=== PATIENT | female | born 1940 | race Caucasian/White ===

== ENCOUNTER 2017-12-10 06:52 | Day surgery (SDC) | payer OTHER ==
[2017-12-07 10:01] LABS: BASOPHILS # (AUTO) 0.1 K/uL (0.00-0.22); BASOPHILS % (AUTO) 1.2 % (0.0-2.0); EOSINOPHILS # (AUTO) 0.1 K/uL (0-0.4); EOSINOPHILS % (AUTO) 2.2 % (0.0-4.0); HEMATOCRIT 45.6 % (36-48); LYMPHOCYTES # (AUTO) 1.2 K/uL (2.5-16.5); LYMPHOCYTES % (AUTO) 22.2 % (20.5-51.1); MEAN CORPUSCULAR HEMOGLOBIN 30 pg (27-31); MEAN CORPUSCULAR HGB CONC 33 g/dL (33-37); MEAN CORPUSCULAR VOLUME 89.9 fL (80-94); MONOCYTES # (AUTO) 0.5 K/uL (0.8-1.0); MONOCYTES % (AUTO) 8.2 % (1.7-9.3); NEUTROPHILS # (AUTO) 3.7 K/uL (1.8-7.7); NEUTROPHILS % (AUTO) 66.2 % (42.2-75.2); PLATELET COUNT (AUTO) 240 K/uL (140-450); RED BLOOD CELL COUNT(AUTO) 5.07 MIL/uL (4.20-5.40); WHITE BLOOD COUNT (AUTO) 5.6 K/uL (4.8-10.8)
[2017-12-07 10:22] LABS: ALBUMIN 4.1 g/dL (3.4-5.0); ANION GAP 9.7 (8-16); ASPARTATE AMINOTRANSFERASE 17 U/L (15-37); CARBON DIOXIDE 28.4 mmol/L (21-32); CHLORIDE 105 mmol/L (98-107); CREATININE 0.8 mg/dL (0.6-1.3); GLUCOSE 89 mg/dL (74-106); POTASSIUM 4.1 mmol/L (3.5-5.1); SODIUM SERUM 139 mmol/L (136-145); TOTAL BILIRUBIN 0.6 mg/dL (0.0-1.0); UREA NITROGEN, BLOOD 11 mg/dL (7-18)
[~2017-12-10] VITALS: Ht 160 cm; Wt 49.0 kg
[2017-12-10] MEDS ORDERED: PROPOFOL 200 MG/20 ML VIAL IV ONE (08:30)
[2017-12-10] MEDS ORDERED: LACTATED RINGERS 1,000 ML IV SCH (09:12)
== END 2017-12-10 10:05 | disposition home or self-care (01) ==
LOC: MMU 06:52 → MDS 06:52
PROVIDERS: ATTEND Internal Medicine Gastroenterology
DX: K44.9 Diaphragmatic hernia without obstruction or gangrene (principal); Z88.1 Allergy status to other antibiotic agents; Z88.5 Allergy status to narcotic agent; Z88.8 Allergy status to other drugs, medicaments and biological substances; J44.9 Chronic obstructive pulmonary disease, unspecified; Z90.710 Acquired absence of both cervix and uterus; Z98.890 Other specified postprocedural states
CPT/HCPCS: 36415; 43235; 71045; 80053; 85025; 93005; J2704; J7030; J7120

== ENCOUNTER 2023-01-27 15:41 | Emergency (ER) | payer OTHER ==
[~2023-01-27] VITALS: Ht 160 cm; Wt 59.0 kg
[2023-01-27 16:02] VITALS: BP 168/94; PULSE 89; RESP 14; TEMP 98.1; O2SAT 98
[2023-01-27 17:01] LABS: BASOPHILS % (AUTO) 0.7 % (0.0-2.0); EOSINOPHILS # (AUTO) 0.1 K/uL (0-0.4); EOSINOPHILS % (AUTO) 1.1 % (0.0-4.0); HEMATOCRIT 39.8 % (36-48); HEMOGLOBIN 13.2 g/dL (12.0-16.0); LYMPHOCYTES # (AUTO) 0.5 K/uL (2.5-16.5); LYMPHOCYTES % (AUTO) 9.3 % (20.5-51.1); MEAN CORPUSCULAR HEMOGLOBIN 30 pg (27-31); MEAN CORPUSCULAR HGB CONC 33 g/dL (33-37); MEAN CORPUSCULAR VOLUME 88.8 fL (80-94); MONOCYTES # (AUTO) 0.4 K/uL (0.8-1.0); MONOCYTES % (AUTO) 7.1 % (1.7-9.3); NEUTROPHILS # (AUTO) 4.7 K/uL (1.8-7.7); NEUTROPHILS % (AUTO) 81.8 % (42.2-75.2); PLATELET COUNT (AUTO) 282 K/uL (140-450); RED BLOOD CELL COUNT(AUTO) 4.48 MIL/uL (4.20-5.40); RED CELL DISTRIBUTION WIDTH 14.5 % (11.6-13.7); WHITE BLOOD COUNT (AUTO) 5.7 K/uL (4.8-10.8)
[2023-01-27 17:16] LABS: ALANINE AMINOTRANSFERASE 13 U/L (12-78); ALBUMIN 3.3 g/dL (3.4-5.0); ALKALINE PHOSPHATASE 100 U/L (50-136); ANION GAP 13.6 (8-16); ASPARTATE AMINOTRANSFERASE 18 U/L (15-37); CALCIUM 9.2 mg/dL (8.5-10.1); CARBON DIOXIDE 27.1 mmol/L (21-32); CHLORIDE 103 mmol/L (98-107); CREATININE 0.8 mg/dL (0.6-1.3); GLUCOSE 84 mg/dL (74-106); POTASSIUM 3.7 mmol/L (3.5-5.1); SODIUM SERUM 140 mmol/L (136-145); TOTAL BILIRUBIN 0.7 mg/dL (0.0-1.0); TOTAL PROTEIN, SERUM 7.1 g/dL (6.4-8.2); UREA NITROGEN, BLOOD 14 mg/dL (7-18)
[2023-01-27 17:17] LABS: INR 1.01 (0.8-1.2); PARTIAL THROMBOPLASTIN TIME 24.3 secs (22-35.6); PROTHROMBIN TIME 10.6 secs (10.8-13.4)
[2023-01-27 17:35] VITALS: BP 177/85; PULSE 99; RESP 19; TEMP 97.3
[2023-01-27 17:40] VITALS: O2SAT 94
== END 2023-01-27 17:03 | disposition short-term general hospital (02) ==
LOC: MED 15:41
DX: S40.012A Contusion of left shoulder, initial encounter (principal); S06.360A Traumatic hemorrhage of cerebrum, unspecified, without loss of consciousness, initial encounter; R90.0 Intracranial space-occupying lesion found on diagnostic imaging of central nervous system; Z79.899 Other long term (current) drug therapy; Z88.8 Allergy status to other drugs, medicaments and biological substances; W18.30XA Fall on same level, unspecified, initial encounter; Y93.89 Activity, other specified; Y92.89 Other specified places as the place of occurrence of the external cause; Y99.8 Other external cause status
CPT/HCPCS: 36415; 70450; 71045; 73030; 73090; 80053; 83880; 84484; 85025; 85610; 85730; 93005; 99291